=== PATIENT | female | born 1995 | race Caucasian/White ===

== ENCOUNTER 2018-01-26 19:58 | Emergency (ER) | payer BC ==
[~2018-01-26] VITALS: Ht 157.5 cm; Wt 74.4 kg
[2018-01-26 20:24] VITALS: Ht 157.5 cm; Wt 74.4 kg
[2018-01-26 21:26] VITALS: BP 141/59
== END 2018-01-26 21:26 | disposition home or self-care (01) ==
LOC: ED 19:58
DX: N39.0 Urinary tract infection, site not specified (principal); J45.909 Unspecified asthma, uncomplicated
CPT/HCPCS: J0696; Q0162